=== PATIENT | male | born 1970 | race Caucasian/White ===

== ENCOUNTER 2020-03-15 14:08 | Outpatient (REF) | payer OTHER, SELFPAY ==
[2020-03-16 16:01] LABS: COVID-19 RT-PCR Result Not Detected ((See Note))
== END 2020-03-15 14:28 ==
LOC: NCHCN 14:08
PROVIDERS: PCP Physician Assistant; Visit Provider Physician Assistant
DX: J06.9 Acute upper respiratory infection, unspecified (principal)
CPT/HCPCS: U0003

== ENCOUNTER 2022-08-03 18:33 | Outpatient (REF) | payer BC, SELFPAY ==
[2022-08-03 19:00] LABS: Abs Immature Grans 0.02 10^3/uL (0.0-0.06); Absolute Basophil Count 0.03 10^3/uL (0.0-0.2); Absolute Eosinophil Count 0.05 10^3/uL (0.0-0.7); Absolute Monocyte Count 0.72 10^3/uL (0.1-0.8); Absolute Neutrophil Count 4.22 10^3/uL (1.2-6.7); Basophils % 0.6; Eosinophils % 0.9; HCT 42.5 % (40.0-50.0); Immature Grans % 0.4; Lymphocytes % 5.6; MCH 33.2 pg (27.0-33.0); MCHC 35.3 % (32.0-36.0); MCV 94 fL (80-95); MPV 11.1 fL (8.0-11.0); Monocytes % 13.5; Platelet Count 156 10^3/uL (130-400); RBC 4.52 10^6/uL (4.36-5.78); RDW 11.6 % (11.8-14.1); RDW-SD 40.2 fL; WBC 5.34 10^3/uL (4.4-10.8)
[2022-08-03 19:38] LABS: Anion Gap 8.6 mmol/L (3-11); BUN 13 mg/dL (7-18); CO2 30.4 mmol/L (21.0-32.0); Calcium 9.1 mg/dL (8.5-10.1); Chloride 101 mmol/L (98-107); Glucose 83 mg/dL (74-106); Sodium 140 mmol/L (136-145); TSH (W/Ref FT4) 0.41 uIU/mL (0.36-3.74)
== END 2022-08-03 18:34 | disposition home or self-care (01) ==
LOC: LBN 18:33
PROVIDERS: PCP Physician Assistant; Visit Provider Physician Assistant Medical
DX: R53.83 Other fatigue (principal)
CPT/HCPCS: 80048; 84443; 85025

== ENCOUNTER 2025-08-18 10:10 | Outpatient (REF) | payer OTHER, SELFPAY ==
[2025-08-18 15:29] LABS: HCT 43.1 % (40.0-50.0); HGB 14.9 g/dL (13.5-17.5); MCH 32.9 pg (27.0-33.0); MCHC 34.6 % (32.0-36.0); MCV 95 fL (80-95); MPV 10.6 fL (8.0-11.0); Platelet Count 178 10^3/uL (130-400); RBC 4.53 10^6/uL (4.36-5.78); RDW 11.9 % (11.8-14.1); RDW-SD 41.1 fL; WBC 4.90 10^3/uL (4.4-10.8)
[2025-08-18 16:23] LABS: Hemoglobin A1C 5.2 % (<5.7)
[2025-08-18 16:29] LABS: ALT 31 U/L (16-63); AST 17 U/L (15-37); Albumin 3.9 g/dL (3.4-5.0); Alkaline Phosphatase 56 U/L (46-116); Anion Gap 9.8 mmol/L (3-11); BUN 15 mg/dL (7-18); Bilirubin, Total 0.8 mg/dL (0.2-1.0); CO2 28.2 mmol/L (21.0-32.0); Calcium 9.1 mg/dL (8.5-10.1); Chloride 104 mmol/L (98-107); Estimated GFR 103.87 (mL/min/1.73m2); Glucose 104 mg/dL (74-106); Potassium 4.1 mmol/L (3.5-5.1); Sodium 142 mmol/L (136-145); TSH (W/Ref FT4) 1.28 uIU/mL (0.36-3.74); Total Protein 7.0 g/dL (6.4-8.2)
[2025-08-27 23:27] LABS: Testosterone, Free 88.9 pg/mL (35.0-155.0)
== END 2025-08-18 10:11 | disposition home or self-care (01) ==
LOC: NCHCN 10:10
PROVIDERS: PCP Physician Assistant
DX: R63.4 Abnormal weight loss (principal); R68.82 Decreased libido
CPT/HCPCS: 80053; 84402; 84403; 85027; 83036; 84443